=== PATIENT | male | born 1975 | race Caucasian/White ===

== ENCOUNTER 2020-04-06 13:09 | Emergency (ER) | payer BC, SELFPAY ==
[2020-04-06 13:11] VITALS: BP 142/90; PULSE 87; RESP 17; TEMP 36.3; O2SAT 98
--- NOTE | 2020-04-06 13:29 | ED.SKABFB ---
HPI - Skin/Abscess/Foreign Bdy General Chief complaint: Skin/Abscess/Foreign Body Stated complaint: abcess on left forearm Time Seen by Provider: 04/06/20 13:12 History of Present Illness HPI narrative: Patient is a 44-year-old male who presents ER with left forearm abscess. Was mowing the lawn 4 days ago when he came inside noticed 2 little dots on his arm. It has since grown into a large red raised area without drainage but there are yellow areas in the center that look like they could drain. No fevers or chills or sweats. No lymphangitic streaking. Tetanus shot is up-to-date. No antibiotic allergies. Related Data Allergies Allergy/AdvReac Type Severity Reaction Status Date / Time No Known Allergies Allergy Unknown Verified 04/06/20 13:10 Review of Systems Constitutional: Constitutional: Denies chills and Denies fever(s) Integumentary/Breasts: Skin/Breast: Reports erythema Comments: pain/abscess left forearm PMFSH Past Medical History Medical History (Updated 04/06/20 @ 14:33 by Ritesh Salmon MD) Healthy adult male Surgical History Surgical History (Updated 04/06/20 @ 13:31 by Ritesh Salmon MD) No pertinent past surgical history Social History Social History (Updated 04/06/20 @ 13:31 by Ritesh Salmon MD) Substance use: never Exam Narrative: Exam Narrative: GENERAL: Well-appearing, well-nourished, and in no acute distress. HEAD: Normocephalic, atraumatic. ENT: Mucous membranes moist. CHEST: Clear to auscultation. No respiratory distress. HEART: Regular rate and rhythm. Normal peripheral pulses. EXTREMITIES: Normal range of motion. No edema. SKIN: Warm, dry, cellulitis with abscess to left forearm with multiple white heads that appear to be pustules. 3cm x 3cm, surrounding cellulitis. NEURO: Alert and oriented x3. Course Course Emergency Course: Tolerated I&D. Discharge home. Vital Signs Vital signs: Vital Signs Temperature 97.4 F L 04/06/20 13:11 Pulse Rate 87 04/06/20 13:11 Respiratory Rate 17 04/06/20 13:11 Blood Pressure 142/90 H 04/06/20 13:11 Pulse Oximetry 98 04/06/20 13:11 Temperature 97.4 F L 04/06/20 13:11 Pulse Rate 87 04/06/20 13:11 Respiratory Rate 17 04/06/20 13:11 Blood Pressure 142/90 H 04/06/20 13:11 Pulse Oximetry 98 04/06/20 13:11 Procedures Abscess I/D upper extremity: Date of Incision: 04/06/20 Time of Incision: 14:32 Side (if applicable): left Local Anesthetic: lidocaine 1% Amount of anesthesia used (mL): 8 Technique: incised with #11 blade Irrigation: No Packing used?: plain I&D Results: Pus Discharge Plan Discharge Clinical Impression: Abscess of left forearm Patient Disposition: Home, Self-Care Condition: Stable Instructions: Antibiotic Form, Abscess (ED) Additional Instructions: Return the ER if you have red streaking up your arm, you have fever over 100.4 ?F, you cannot keep down food or water, you have additional concerns. Prescriptions: New sulfamethoxazole-trimethoprim [Bactrim DS] 800-160 mg tablet 1 tablet PO Q12H Qty: 28 RF: 0 Follow-up/Referrals: UNKNOWN,DOCTOR [Primary Care Provider] - 1 Week
[2020-04-06] MEDS: LIDO 1%/EPINEPHRINE 1:100,000 20 ML VIAL 10 ML INFILTRATE (15:01)
== END 2020-04-06 15:04 | disposition home or self-care (01) ==
PROVIDERS: Emergency Provider Emergency Medicine
DX: L02.414 Cutaneous abscess of left upper limb (principal)
CPT/HCPCS: 10060; 99283; A9270

== ENCOUNTER 2020-06-16 14:52 | Emergency (ER) | payer BC, SELFPAY ==
[2020-06-16 14:53] VITALS: BP 134/94; PULSE 86; RESP 18; TEMP 36.6; O2SAT 100
[2020-06-16] MEDS: KETOROLAC (*BKC) 60 MG/2 ML VIAL IM (15:38)
--- NOTE | 2020-06-16 16:07 | ED.URI ---
HPI - URI/Sore Throat General Chief Complaint: Upper Respiratory Infection Stated Complaint: sinus pressure Time Seen by Provider: 06/16/20 15:00 Source: patient Mode of arrival: ambulatory Limitations: no limitations History of Present Illness HPI Narrative: This patient is a 44 year old Male who presents for evaluation right sinus pain and headache. He states starting on Thursday he developed right nasal congestion, right ear pain and right posterior headache. He states his headache has been a constant dull ache. He was evaluated at [facility] and he was prescribed claritin D. He states they clariting D helped clear up the right nasal congestion , and he is able to breath in better. He reports on his right eye started watery and itching . He was also prescribed a nasal sprain . He is here because he continues to have a right posterior headache. HE denies fever, chills, nasuea, vomiting, focal weakness, numbness or tingling. He has been taking excedrin migraine without improvement. Related Data Allergies Allergy/AdvReac Type Severity Reaction Status Date / Time No Known Allergies Allergy Unknown Verified 06/16/20 14:54 Review of Systems Review of Systems: All systems reviewed & are unremarkable except as noted in HPI and below Constitutional: Constitutional: Denies chills and Denies fever(s) Eyes: Eyes: Denies blind spots, Denies blurry vision, Denies exophthalmos, Denies decreased night vision, Denies diplopia and Reports itchy eyes ENT: Reports facial pain, Reports headache(s), Reports nasal congestion and Denies sore throat Cardiovascular: Cardiovascular: Denies chest pain Respiratory: Respiratory: Denies cough, Denies dyspnea and Denies wheezing Gastrointestinal: Gastrointestinal: Denies abdominal pain, Denies nausea and Denies vomiting Neurologic: Denies vertigo, Denies dizziness, Reports headache(s), Denies focal weakness, Denies numbness and Denies weakness PMFSH Past Medical History Medical History (Updated 06/16/20 @ 16:30 by Chelsea Park MD) Healthy adult male Surgical History Surgical History (Updated 04/06/20 @ 13:31 by Ritesh Salmon MD) No pertinent past surgical history Social History Social History (Updated 04/06/20 @ 13:31 by Ritesh Salmon MD) Substance use: never Gender identity (if verbalized by the patient): Male Exam Const: General: no acute distress and alert Orientation/consciousness: patient oriented x3 HENMT: Head: normocephalic, atraumatic, no occipital foramen tenderness, no scalp lesions, no scalp tenderness and no temporal artery tenderness Ears: TM abnormal wth effusion serous and with fluid behind the TM on the right General nose exam: Abnormal mucous membranes and turbinates present boggy bilateral (worse on right , black particles in right nostril) and erythematous and Other nasal findings present (cyst right tip nose, no erythema, no drainage) Face and sinus: sinuses nontender and face symmetric Mouth: Yes Normal oral and palatal mucosa present, Yes lip normal, Yes oropharynx normal and Yes moist mucous membranes Throat: posterior oropharynx normal, tonsils normal and uvula midline Eyes: Conjunctivae: conjunctivae normal Pupils: Equal, round and reactive pupils present EOM: EOMs intact bilaterally Neck: Neck: normal visual inspection Chest: Chest palpation & inspection: normal inspection of the chest Resp: Effort & Inspection: normal respiratory effort, no retractions and no use of accessory muscles Auscultation: clear to auscultation bilaterally Skin: General skin exam: normal color Rashes: no rashes Neuro: General: patient oriented x3, moves all extremities, no meningeal signs, no focal motor deficits and CN's II-XI intact bilaterally Cranial nerves: Yes Nystagmus not present Speech: normal speech and No Abnormal speech present Gait exam (Neuro): Normal gait present Extrem: General: no pedal edema Psych: Menta
[2020-06-16 16:40] VITALS: BP 128/80; PULSE 69; RESP 18; O2SAT 100
== END 2020-06-16 16:51 | disposition home or self-care (01) ==
PROVIDERS: Emergency Provider General Practice
DX: J01.90 Acute sinusitis, unspecified (principal)
CPT/HCPCS: 96372; 99283; J1885

== ENCOUNTER 2023-03-02 13:55 | Emergency (ER) | payer BC, SELFPAY ==
[2023-03-02 14:00] VITALS: BP 125/72; PULSE 92; RESP 20; TEMP 36.6; O2SAT 99
[2023-03-02 14:41] LABS: Strep Group A RT-PCR NOT DETECTED (Negative)
--- NOTE | 2023-03-02 14:54 | ED.GENADULT ---
HPI - General Adult General Chief complaint: Upper Respiratory Infection Stated complaint: st Time Seen by Provider: 03/02/23 14:11 History of Present Illness HPI narrative: Patient is a 47-year-old male who presents to the ER with sore throat. Ongoing over the last day. Associate with fever up to 102.5 ?F. Also reports sinus congestion with productive cough. Reports significant other has had similar symptoms. No chest pain or chest pressure. No difficulty breathing. Has pain with swallowing. Related Data Allergies Allergy/AdvReac Type Severity Reaction Status Date / Time No Known Allergies Allergy Unknown Verified 03/02/23 14:02 Review of Systems Review of Systems: All systems reviewed & are unremarkable except as noted in HPI and below Constitutional: Constitutional: Denies chills, Denies fatigue and Reports fever(s) ENT: Reports nasal congestion and Reports sore throat Cardiovascular: Cardiovascular: Denies chest pain, Denies rapid heart rate and Denies radiating jaw, neck or arm pain Respiratory: Respiratory: Reports cough, Denies dyspnea and Denies wheezing PMFSH Past Medical History Medical History (Updated 03/02/23 @ 14:55 by Ritesh Salmon MD) Healthy adult male Surgical History Surgical History (Updated 04/06/20 @ 13:31 by Ritesh Salmon MD) No pertinent past surgical history Social History Social History (Updated 04/06/20 @ 13:31 by Ritesh Salmon MD) Substance use: never Gender identity (if verbalized by the patient): Male Exam Narrative: GENERAL: Well-appearing, well-nourished, and in no acute distress. HEAD: Normocephalic, atraumatic. EYES: PERRL and EOMI. ENT: Mucous membranes moist. Pharyngeal erythema without tonsillar hypertrophy but there is tonsillar exudate. Uvula midline and nonedematous. NECK: Supple. CHEST: Clear to auscultation. No respiratory distress. HEART: Regular rate and rhythm. Normal peripheral pulses. EXTREMITIES: Normal range of motion. No edema. NEURO: Alert and oriented x3. PSYCH: Normal mood and affect. Course Course Emergency Course: Patient resting comfortably. Informed of results. Discussed supportive care. Discharge home. Vital Signs Vital signs: Vital Signs Temperature 97.8 F 03/02/23 14:00 Pulse Rate 92 03/02/23 14:00 Respiratory Rate 20 03/02/23 14:00 Blood Pressure 125/72 03/02/23 14:00 Pulse Oximetry 99 03/02/23 14:00 Oxygen Delivery Room Air 03/02/23 14:00 Temperature 97.8 F 03/02/23 14:00 Pulse Rate 92 03/02/23 14:00 Respiratory Rate 20 03/02/23 14:00 Blood Pressure 125/72 03/02/23 14:00 Pulse Oximetry 99 03/02/23 14:00 Oxygen Delivery Room Air 03/02/23 14:00 Medical Decision Making Vital Signs Vital Signs: Vital Signs Temperature 97.8 F 03/02/23 14:00 Pulse Rate 92 03/02/23 14:00 Respiratory Rate 20 03/02/23 14:00 Blood Pressure 125/72 03/02/23 14:00 Pulse Oximetry 99 03/02/23 14:00 Oxygen Delivery Room Air 03/02/23 14:00 Temperature 97.8 F 03/02/23 14:00 Pulse Rate 92 03/02/23 14:00 Respiratory Rate 20 03/02/23 14:00 Blood Pressure 125/72 03/02/23 14:00 Pulse Oximetry 99 03/02/23 14:00 Oxygen Delivery Room Air 03/02/23 14:00 Lab Data Labs: Lab Results 03/02/23 Range/Units 14:04 Group A Strep (PCR) Not detected (Negative) Discharge Plan Discharge Clinical Impression: Pharyngitis Patient Disposition: Home, Self-Care Condition: Stable Instructions: Pharyngitis (ED) Additional Instructions: Continue to stay hydrated at home while you fight this infection. Take Tylenol as needed for fever. You may also use [id number] cough drops to soothe your throat. Your strep test was negative and this is felt to be a viral infection. Prescriptions: No Action sulfamethoxazole-trimethoprim [Bactrim DS] 800-160 mg tablet 1 tablet PO Q12H Qty: 28 0RF hydrocodone-mundo
[2023-03-02 15:11] VITALS: BP 132/89; PULSE 84; RESP 17; O2SAT 99
== END 2023-03-02 15:13 | disposition home or self-care (01) ==
PROVIDERS: Emergency Provider Emergency Medicine
DX: J02.9 Acute pharyngitis, unspecified (principal)
CPT/HCPCS: 87651; 99283